=== PATIENT | female | born 1955 | race Caucasian/White ===

== ENCOUNTER 2016-04-09 08:10 | Inpatient (IN) | payer SELFPAY ==
[2016-04-09] MEDS ORDERED: Albuterol/Ipratropium Neb 3 ML NEB NEB ONE (08:26)
[2016-04-09] MEDS ORDERED: METHYLPREDNISOLONE 125 MG/2 ML VIAL IV ONE (08:26)
[2016-04-09 08:49] LABS: AUTOMATED BASOPHIL 0.5 % (0-2); AUTOMATED EOSINOPHIL 0.3 % (0-5); AUTOMATED LYMPH 11.5 % (17-44); AUTOMATED MONOCYTE 6.6 % (3-10); AUTOMATED NEUTROPHIL 81.1 % (45-76); MPV 9.7 fL (7.4-10.4)
--- NOTE | 2016-04-09 08:51 | EDPRACDOC ---
- General Information Chief Complaint: Flu-Like Symptoms Stated Complaint: COUGH Time Seen by Provider: 04/09/16 08:25 Mode Of Arrival: Car Home Medications: Home Medications Meclizine HCl [Antivert] 25 mg PO Q6H PRN #20 tablet 01/17/16 Promethazine [Phenergan] 25 mg PO Q6H PRN #10 tab 01/17/16 Sulfamethoxazole/Trimethoprim [Bactrim Ds Tablet] 1 tab PO BID #14 tab 01/17/16 Allergies/Adverse Reactions: Allergies Allergy/AdvReac Type Severity Reaction Status Date / Time No Known Allergies Allergy Verified 04/09/16 08:16 - History of Present Illness Symptoms Started: 2 WKS Symptoms: Reports: Cough Recent Medications: Reports: None Relevant History Of: Reports: COPD Shortness of Breath: Mild Cough Frequency: Intermittent Cough Description: Reports: Productive Rhinorrhea: Reports: Brown Ear Symptoms: Reports: None Associated Signs and Symptoms: Reports: Cough ED Past Medical History - History Reviewed Yes Nurses notes reviewed and agree except as marked - Patient Medical History Cardiac History: Reports: Hypertension, Hypercholesterolemia Respiratory History: Reports: Asthma, COPD, Chronic Bronchitis GI/ History: Reports: Urinary Tract Infection Musculoskeletal History: Reports: Arthritis Psychological History: Denies: Depression Surgical History: Denies: Hysterectomy - Family Medical History Reports: Diabetes (MOTHER), Cancer (FATHER- PROSTATE), Stroke (FATHER), Cardiac Disorders (MOTHER) - Social Medical History Smoking Status: Heavy tobacco smoker (5 or more cigarettes/day or daily pipe/ cigar) EDM Review of Systems - Review of Systems ROS Negative Except as Marked: Yes All systems reviewed and were negative except as marked - Physical Exam Constitutional: Alert (Awake), No apparent distress Oriented to: Time, Person, Place Last recorded Vital Signs: Last Vital Signs Temp 98.5 F 04/09/16 08:12 Pulse 83 04/09/16 08:45 Resp 20 04/09/16 08:45 BP 107/64 04/09/16 08:45 Pulse Ox 87 L 04/09/16 08:45 Oxygen Pulse Oxygen Saturation 87 O2 Device Oxygen Flow Rate Fraction of Inspired Oxygen ( FIO2) - HEENT Head: Normal ( normocephalic) Eye Exam: Normal (PERRL, EOMI, Sclera white) Oropharynx: Normal (Pharynx:Moist without exudate,Gums-no swelling) ENT EAC: Normal TMJ: Normal Nose: No Symptoms Reported (septum midline) Neck: Normal (FROM, trachea at midline) - Respiratory/Cardiovascular Respiratory: Diminished, Wheezes Cardiovascular: Normal (RRR without murmur, gallop or rub) - GI Auscultation: Normal (NABS) Palpation: Normal (Soft,No rebound or guarding, non distended) Tenderness: Non tender Ferrell's Sign: Negative - Musculoskeletal Back: Normal (Non-Tender) Extremities: Normal (Normal tone, Pulses 2+ No cyanosis or edema, FROM) - Integumentary Skin: Normal, Warm, Dry Lymphatics: Normal (no adenopathy) - Neurologic Memory Impaired: Normal Motor Function: Normal (Normal tone, Pulses 2+ No cyanosis or edema, FROM) Cranial Nerve: Normal (CN II-X11 intact sensation, strength 5/5) Cerebellar: Normal Mood Description: Normal Perception: Normal - Results 04/09/16 08:30 04/09/16 08:30 WBC 14.4 xk/uL (3.8-10.8) H 04/09/16 08:30 RBC 4.64 xM/uL (4.20-5.40) 04/09/16 08:30 Hgb 14.8 g/dL (12.0-16.0) 04/09/16 08:30 Hct 43.0 % (36-47) 04/09/16 08:30 MCV 93 fL (81-99) 04/09/16 08:30 MCH 31.8 pg (27-32) 04/09/16 08:30 MCHC 34.3 g/dl (33-36) 04/09/16 08:30 RDW 12.9 % (11.5-14.5) 04/09/16 08:30 Plt Count 349 xk/uL (130-400) 04/09/16 08:30 MPV 9.7 fL (7.4-10.4) 04/09/16 08:30 Neut % (Auto) 81.1 % (45-76) H 04/09/16 08:30 Lymph % (Auto) 11.5 % (17-44) L 04/09/16 08:30 [place] % (Auto) 6.6 % (3-10) 04/09/16 08:30 Eos % (Auto) 0.3 % (0-5) 04/09/16 08:30 Baso % (Auto) 0.5 % (0-2) 04/09/16 08:30 Absolute Neuts (auto) 11.66 xk/uL (1.7-8.2) H 04/09/16 08:30 Absolute Lymphs (auto) 1.58 xk/uL (0.65-4.75) 04/09/16 08:30 Lab Results 04/09/16 08:30 WBC 14.4 H RBC 4.64 Hgb 14.8 Hct 43.0 MCV 93 MCH 31.8 MCHC 34.3 RDW 12.9 Plt Count 349 MPV 9.7 Neut % (Auto) 81.1 H Lymph % (Auto) 11.5 L [place] % (Auto) 6.6 Eos % (Auto) 0.3 Baso % (Auto) 0.5 Absolute Neuts (auto) 11.66 H Absolute Lymphs (auto) 1.58 - EKG EKG #1 [place]: Normal Rhythm: NSR Block: None Hypertrophy: None ST: Normal - Departure Yes I personally saw and evaluated the patient. Disposition: Admit IP To This Hospital Condition: Good Final Diagnosis: Acute bronchitis, COPD EXACERBATION WITH HYPOXIA Referrals: None,No Provider [Primary Care Provider] - One Week Prescriptions: No Action Meclizine HCl [Antivert] 25 mg PO Q6H PRN #20 tablet PRN Reason: Dizziness Promethazine [Phenergan] 25 mg PO Q6H PRN #10 tab PRN Reason: Nausea/Vomiting Sulfamethoxazole/Trimethoprim [Bactrim Ds Tablet] 1 tab PO BID #14 tab Decision to Admit Time: 09:22 (ROBERTO) Decision to admit date: 04/09/16 Decision to admit: from ED
[2016-04-09 08:53] LABS: ABG Draw Site Right Brachial; ALLEN'S TEST PASS; BEb 5.4 (+/- 2); TCO2 31.2 MMOL/L (23-27)
[2016-04-09 09:02] LABS: BLOOD UREA NITROGEN 7 MG/DL (7-17); CALC CORRECTED 9.1 MG/DL (8.4-10.2); CALCIUM 8.7 MG/DL (8.4-10.2); CALCULATED OSMOLALITY 264 MOs/Kg (270-290); CHLORIDE 99 mEq/L (98-107); GLUCOSE 100 mg/dL (70-99); SODIUM LEVEL 138 mEq/L (137-146); TOTAL PROTEIN 7.1 G/DL (6.3-8.2)
--- NOTE | 2016-04-09 09:20 | DIRPT ---
CLINICAL DATA: Shortness of breath, cough. EXAM: CHEST 2 VIEW COMPARISON: January 17, 2016. FINDINGS: The heart size and mediastinal contours are within normal limits. No pneumothorax or pleural effusion is noted. No acute pulmonary disease is noted. The visualized skeletal structures are unremarkable. IMPRESSION: No active cardiopulmonary disease. Electronically Signed By: Henrique Liu Jr, M.D. On: 04/09/2016 09:17
[2016-04-09] MEDS ORDERED: ONDANSETRON HCL 4 MG/2 ML VIAL IV PRN (09:29)
[2016-04-09] MEDS ORDERED: ACETAMINOPHEN 325 MG/TAB TABLET PO PRN (09:29)
[2016-04-09] MEDS ORDERED: TEMAZEPAM 15 MG CAP PO PRN (09:30)
[2016-04-09] MEDS ORDERED: PROMETHAZINE 25 MG TAB PO PRN (09:30)
[2016-04-09] MEDS ORDERED: MECLIZINE 25 MG TAB PO PRN (09:30)
[2016-04-09] MEDS ORDERED: ALBUTEROL 0.083% 3 ML NEB NEB PRN (09:31)
[2016-04-09] MEDS: CEFTRIAXONE 1 GM in D5W 100 ML IV SCH (10:14)
[2016-04-09 10:43] VITALS: BMI 3713.3
[2016-04-09] MEDS ORDERED: Vaccine Screening Complete SCH (12:00)
[2016-04-09] MEDS: AZITHROMYCIN 500 MG in D5W 250 ML IV SCH (12:11)
[2016-04-09] MEDS ORDERED: POTASSIUM CHLORIDE 20 MEQ/15 ML ORAL SOLN PO ONE (12:49)
--- NOTE | 2016-04-09 12:52 | HISTPHYS ---
- Chief Complaint Cough, shortness of breath - History of Present Illness This is a 52-year-old female with a history of COPD who says that she has been sick, with shortness of breath, nasal drainage and increased cough with clear yellow sputum production for the last 2 weeks. She finally decided to come to the hospital since she was getting so short of breath. She denies any fevers, she did develop some chest pain which is clearly connected to her severe coughing for the last couple of weeks and is tender to palpation. She has a nebulizer at home, but these medications are not helping much any more, she is chronically not on oxygen at home. She denies any cardiac chest pain, nausea, vomiting, fevers, chills, abdominal pain, diarrhea or constipation. In the emergency department, she was found to have COPD without evidence of bacterial pneumonia on chest x-ray examination. Hospitalist group was consulted for further evaluation and inpatient admission for management of her COPD exacerbation. - Medical History Cardiac History: Reports: Hypertension Respiratory History: Reports: Asthma, COPD - Surgical History Denies: Hysterectomy - Medictions/Allergies Allergies No Known Allergies Allergy (Verified 04/09/16 08:16) Home Medications Meclizine HCl [Antivert] 25 mg PO Q6H PRN #20 tablet 01/17/16 Promethazine [Phenergan] 25 mg PO Q6H PRN #10 tab 01/17/16 - Family History Reports: Diabetes (MOTHER), Cancer (FATHER- PROSTATE), Stroke (FATHER), Cardiac Disorders (MOTHER) - Social History Travel Outside of [place] in the Last 3 Months?: No Smoking Status: Heavy tobacco smoker (5 or more cigarettes/day or daily pipe/ cigar) - Review of Systems Yes All systems reviewed and were negative except as marked (And as mentioned in the history of present illness.) - Physical Exam Vital Signs: Initial Vitals Temperature 98.5 F 04/09/16 08:12 Pulse Rate 103 04/09/16 08:12 Respiratory Rate 20 04/09/16 08:12 Blood Pressure 115/58 L 04/09/16 08:12 Pulse Oxygen Saturation 87 L 04/09/16 08:12 Constitutional: Alert, Distress Oriented to: Time, Person, Place Exam: Can speak several words at a time without getting short of breath. - HEENT Head: Normal (normocephalic,atraumatic, trachea midline) Eye: Normal (EOMI, Sclera white) Oropharynx: Normal (moist) Nose: No Symptoms Reported (without discharge or bleeding) Respiratory: Diminished, Rales, Rhonchi. negative: Wheezes Cardiovascular: Normal (RRR, no murmurs, rubs or gallops) - GI Palpation: Normal (soft, non distended and nontender) - Musculoskeletal Extremities: Normal (normal tone, no cyanosis or edema) - Integumentary Skin: Normal (no rashes or lesions) - Focused CV Perfusion Exam Vital Signs: Last Vital Signs Temp 98.4 F 04/09/16 10:38 Pulse 84 04/09/16 10:38 Resp 20 04/09/16 10:38 BP 127/66 04/09/16 10:38 Pulse Ox 93 04/09/16 10:38 - Lab Results Laboratory Tests 04/09/16 04/09/16 04/09/16 08:30 08:30 08:50 WBC 14.4 H Hgb 14.8 Hct 43.0 Plt Count 349 pH 7.460 H pCO2 42.0 pO2 49.0 L* Potassium 3.4 L BUN 7 Creatinine 0.60 - Assessment (1) COPD exacerbation J44.1 - CHRONIC OBSTRUCTIVE PULMONARY DISEASE W (ACUTE) EXACERBATION Acute Patient being admitted to the hospital due to severe COPD exacerbation requiring breathing treatments, supplemental oxygen. Respiratory therapy has been consulted, will provide oxygen as able and wean as tolerated, to keep O2 saturations above 90%. Treat empirically with IV azithromycin and Rocephin, as well as inhaled bronchodilators and mucolytics on a scheduled and p.r.n. basis. She will also be receiving IV steroids with taper as she improves. She will be on IV PPI while she is on the IV steroids. (2) Non-cardiac chest pain R07.89 - OTHER CHEST PAIN Acute Due to severe coughing fits over the last few days. Chest is tender to palpation. (3) Hyperlipidemia E78.5 - HYPERLIPIDEMIA, UNSPECIFIED Chronic (4) Hypertension I10 - ESSENTIAL (PRIMARY) HYPERTENSION Chronic Case Care Discussed with: Patient, Nursing Staff Total Time: 39
[2016-04-09] MEDS ORDERED: METHYLPREDNISOLONE 40 MG/1 ML VIAL IV SCH (14:00)
[2016-04-09] MEDS: Albuterol/Ipratropium Neb 3 ML NEB NEB SCH ×2 (14:05→21:01)
[2016-04-09] MEDS: METHYLPREDNISOLONE 125 MG/2 ML VIAL IV SCH ×2 (14:40→19:30)
[2016-04-09] MEDS: ENOXAPARIN 40 MG/0.4 ML PFS SQ SCH (18:43)
[2016-04-10] MEDS: METHYLPREDNISOLONE 125 MG/2 ML VIAL IV SCH ×4 (02:09→19:12)
[2016-04-10] MEDS: Albuterol/Ipratropium Neb 3 ML NEB NEB SCH ×4 (02:22→19:00)
[2016-04-10 07:29] LABS: MPV 10.1 fL (7.4-10.4)
[2016-04-10 07:49] LABS: BLOOD UREA NITROGEN 13 MG/DL (7-17); CALCIUM 9.2 MG/DL (8.4-10.2); CALCULATED OSMOLALITY 268 MOs/Kg (270-290); CHLORIDE 102 mEq/L (98-107); GLUCOSE 135 mg/dL (70-99); SODIUM LEVEL 138 mEq/L (137-146)
[2016-04-10] MEDS ORDERED: PNEUMOCOCCAL 0.5 ML VIAL IM ONE (08:00)
[2016-04-10] MEDS ORDERED: FLU VACCINE (Afluria) 0.5 ML DOSE IM ONE (08:00)
[2016-04-10] MEDS: CEFTRIAXONE 1 GM in D5W 100 ML IV SCH (09:18)
[2016-04-10] MEDS: AZITHROMYCIN 500 MG in D5W 250 ML IV SCH (11:26)
--- NOTE | 2016-04-10 11:56 | GENMEDPROG ---
Chief Complaint: COPD acerbation Subjective Note: Doing well this morning, but feels about the same as yesterday. Still coughing a little bit, has been walking in her room but still has some dyspnea with exertion. Notes Reviewed: Yes: Events from last night noted and discussed with Clinical Staff Current Medication List: Reviewed Currently: Reports: Cough, Wheezing, CAMPUZANO, SOB DVT Prophylaxis: Yes - Physical Examination Vital Signs and I&O: Last Vital Signs Temp 97.8 F 04/10/16 10:00 Pulse 89 04/10/16 10:00 Resp 18 04/10/16 10:00 BP 101/56 L 04/10/16 10:00 Pulse Ox 92 04/10/16 10:00 Oxygen Pulse Oxygen Saturation 92 O2 Device Nasal Cannula Oxygen Flow Rate 2 Fraction of Inspired Oxygen ( FIO2) Intake & Output 04/08/16 04/09/16 04/10/16 04/11/16 06:59 06:59 06:59 06:59 Intake Total 1115 240 Output Total 1050 100 Balance 65 140 Patient's weight 69.059 kg General: Alert, Oriented x3, No acute distress HEENT: EOMI (Sclera white) Neck: Normal Trachea alignment, Normal inspection Respiratory: Diminished, Rales. negative: Rhonchi, Wheezes Cardiovascular: Regular rate, No Gallops,Rubs/Murmurs GI: Normal bowel sounds, Soft, Non tender (non distended) Extremities/Musculoskeletal: Other (Normal Tone). negative: Edema, Cyanosis Lab/DI/Studies Reviewed: Laboratory Tests 04/10/16 04/10/16 06:55 06:55 WBC 15.8 H Potassium 4.7 D Creatinine 0.70 - Assessment (1) COPD exacerbation Acute J44.1 - CHRONIC OBSTRUCTIVE PULMONARY DISEASE W (ACUTE) EXACERBATION Comment/Plan: Patient admitted to the hospital due to severe COPD exacerbation requiring breathing treatments, supplemental oxygen. Respiratory therapy has been consulted, will provide oxygen as able and wean as tolerated, to keep O2 saturations above 90%. Treat empirically with IV azithromycin and Rocephin, as well as inhaled bronchodilators and mucolytics on a scheduled and p.r.n. basis. She will also be receiving IV steroids with taper as she improves. She will be on IV PPI while she is on the IV steroids. (2) Non-cardiac chest pain Acute R07.89 - OTHER CHEST PAIN Comment/Plan: Due to severe coughing fits over the last few days. Chest is tender to palpation. (3) Hyperlipidemia Chronic E78.5 - HYPERLIPIDEMIA, UNSPECIFIED (4) Hypertension Chronic I10 - ESSENTIAL (PRIMARY) HYPERTENSION - Plan Continue present care, steroids at the current dose, anticipate weaning down oxygen a little further back to her baseline in the coming days, and weaning steroids as she improved as well.
[2016-04-10] MEDS: ENOXAPARIN 40 MG/0.4 ML PFS SQ SCH (16:42)
[2016-04-11] MEDS: Albuterol/Ipratropium Neb 3 ML NEB NEB SCH ×3 (01:15→14:51)
[2016-04-11] MEDS: METHYLPREDNISOLONE 125 MG/2 ML VIAL IV SCH ×3 (02:12→13:56)
[2016-04-11 07:40] LABS: MPV 10.2 fL (7.4-10.4)
[2016-04-11 07:58] LABS: BLOOD UREA NITROGEN 21 MG/DL (7-17); CALCIUM 9.5 MG/DL (8.4-10.2); CALCULATED OSMOLALITY 267 MOs/Kg (270-290); CHLORIDE 101 mEq/L (98-107); GLUCOSE 104 mg/dL (70-99); SODIUM LEVEL 137 mEq/L (137-146)
[2016-04-11] MEDS: CEFTRIAXONE 1 GM in D5W 100 ML IV SCH (09:25)
[2016-04-11 10:12] VITALS: BP 100/60; PULSE 74; TEMP 97.8
[2016-04-11] MEDS: AZITHROMYCIN 500 MG in D5W 250 ML IV SCH (11:43)
--- NOTE | 2016-04-11 12:58 | PCM.DCS92 ---
- Final/Secondary Discharge Diagnosis (1) COPD exacerbation Acute J44.1 - CHRONIC OBSTRUCTIVE PULMONARY DISEASE W (ACUTE) EXACERBATION Comment: Patient admitted to the hospital due to severe COPD exacerbation requiring breathing treatments, supplemental oxygen. Respiratory therapy has been consulted, will provide oxygen as able and wean as tolerated, to keep O2 saturations above 90%. Treat empirically with IV azithromycin and Rocephin, as well as inhaled bronchodilators and mucolytics on a scheduled and p.r.n. basis. She was also treated with IV steroids with taper she improved, she was on IV PPI while on IV steroids. Today, she is tolerating room air and is ready for discharge home today. She will be discharged home today to complete a course of p.o. antibiotics, as well as an oral steroid taper. (2) Non-cardiac chest pain Acute R07.89 - OTHER CHEST PAIN Comment: Due to severe coughing fits over the last few days. Chest is tender to palpation. (3) Hyperlipidemia Chronic E78.5 - HYPERLIPIDEMIA, UNSPECIFIED (4) Hypertension Chronic I10 - ESSENTIAL (PRIMARY) HYPERTENSION Discharge Disposition: Home Discharge Condition: Good Cognitive Discharge Status: Unimpaired Fuctional Discharge Status: Independent Physician Follow up/Referrals: None,No Provider [Primary Care Provider] - One Week Home Medications / New Prescriptions: New Azithromycin [Zithromax] 500 mg PO DAILY #4 tablet Cefdinir [Omnicef] 300 mg PO BID 4 Days Prednisone [Sterapred Ds] 10 mg PO DIR #21 pack Continue Meclizine HCl [Antivert] 25 mg PO Q6H PRN #20 tablet PRN Reason: Dizziness Promethazine [Phenergan] 25 mg PO Q6H PRN #10 tab PRN Reason: Nausea/Vomiting O2 Device: Room Air Diet at Discharge: Regular Activity: As Tolerated, No Heavy Lifting (nothing over 30 lbs), No Driving ( while using pain medications) Call Office For: Worsening Symptoms, Wound is Draining Pus, Fever over 101 F - DC Summary Notes HPI/Notes: This is a 60-year-old woman with a history of COPD was admitted to the hospital with COPD exacerbation requiring supplemental oxygen and IV antibiotic and IV steroid therapy. She responded well to this, and is ready for discharge home today. Please see the hospital problems and discharge problems above for details of the hospital course including diagnostics and treatment. The plan of care including medications, prognosis, follow-up including alarm symptoms for which medical care should be sought were reviewed with the patient and any available family members/caretakers. The patient is agreeable to discharge today, and all questions were answered by me to their satisfaction. Hospital Course Note:: Discharge summary on patient named RAJESH PICKETT admitted to [facility] on 04/09/16 by Gage Lofton MD. Date of discharge is []. Total Time: 41 - Physical Exam Vital Signs: Last Vital Signs Temp 97.8 F 04/11/16 10:00 Pulse 74 04/11/16 10:00 Resp 18 04/11/16 10:00 BP 100/60 04/11/16 10:00 Pulse Ox 95 04/11/16 12:37 Oxygen Pulse Oxygen Saturation 95 O2 Device Room Air Oxygen Flow Rate 1 Fraction of Inspired Oxygen ( FIO2) Constitutional: No apparent distress, Alert Oriented to: Time, Person, Place Exam: Patient is very comfortable, feels like she is ready to go home today. She was ambulated by nursing staff in the halls off of oxygen, and oxygen saturations never went below 91%. - HEENT Head: Normal (normocephalic,atraumatic, trachea midline) Eye: Normal (EOMI, Sclera white) Oropharynx: Normal (moist) Nose: No Symptoms Reported (without discharge or bleeding) - Respiratory/Cardiovascular Respiratory: Diminished. negative: Rales, Rhonchi, Wheezes Cardiovascular: Normal (RRR , Normal S1, S2. No murmurs, rubs, or gallops. PMI non-displaced. Carotids: no carotid bruits. No bradycardia or tachycardia. DP pulses 2+ bilaterally.) - GI Palpation: Normal (soft, non distended and nontender) - Musculoskeletal Extremities: Normal (normal tone, no cyanosis or edema) - Integumentary Skin: Normal (no rashes or lesions) - Neurologic Memory Impaired: Normal Cerebellar: Normal Mood Description: Normal Perception: Normal
== END 2016-04-11 14:53 | disposition home or self-care (01) | DRG 192 ==
LOC: ED 08:10 → MPS3 09:31
PROVIDERS: ADMIT Internal Medicine; ATTEND Internal Medicine
PROC: 4A033R1 Measurement of Arterial Saturation, Peripheral, Percutaneous Approach (ICD-10-PCS; principal; 2016-04-09)
DX: J44.1 Chronic obstructive pulmonary disease with (acute) exacerbation (principal); I10 Essential (primary) hypertension; Z23 Encounter for immunization; E78.5 Hyperlipidemia, unspecified; J45.909 Unspecified asthma, uncomplicated; Z72.0 Tobacco use
CPT/HCPCS: 36415; 36600; 71020; 80048; 80053; 82803; 84484; 85025; 85027; 87040; 90471; 90656; 90732; 93005; 94640; 96372; 96374; 98960; 99283; 99406; G0237; J0456; J0696; J1650; J2920; J2930; J3490; J7060; J7070; J7620